=== PATIENT | female | born 1990 | race American Indian/Alaskan Native ===

== ENCOUNTER 2019-01-15 10:51 | Inpatient (IN) | payer MEDICAID ==
[2019-01-15 11:36] VITALS: BMI 29.1
[2019-01-15] MEDS ORDERED: Oxytocin 30 UNIT 30 UNITS/500 ML BAG IV ONE ×2 (12:13→18:40)
[2019-01-15] MEDS ORDERED: Lactated Ringer's 1,000 ML IV SCH (12:15)
[2019-01-15 12:19] VITALS: O2SAT 100
[2019-01-15 12:30] LABS: BASO # 0.1 K/uL (0.0-0.2); BASO % 1.6 % (0.0-2.0); EOS # 0.1 K/uL (0.0-0.7); EOS % 1.2 % (0.0-4.0); HEMOGLOBIN 12.3 g/dL (12.0-16.0); LYMPH # 1.1 K/uL (1.0-4.3); LYMPH % 20.4 % (20.0-40.0); MEAN CELL VOLUME 92.3 fl (81.0-99.0); MEAN CORPUSCULAR HEMOGLOBIN 30.1 pg (27.0-31.0); MEAN CORPUSCULAR HGB CONC 32.6 g/dL (33.0-37.0); MEAN PLATELET VOLUME 8.1 fl (7.2-11.7); MONO # 0.5 K/uL (0.0-0.8); MONO % 10.1 % (0.0-10.0); NEUT # 3.5 K/uL (1.8-7.0); NEUT % 66.7 % (50.0-75.0); NRBC % 0.5 % (0.0-0.0); RBC 4.08 Mil/uL (3.80-5.20); RED CELL DISTRIBUTION WIDTH 13.5 % (11.5-14.5); WHITE BLOOD COUNT 5.2 K/uL (4.8-10.8)
[2019-01-15] MEDS: Lactated Ringer's 1,000 ML IV SCH ×2 (15:40→16:40)
[2019-01-15] MEDS ORDERED: Fentanyl/Bupivacaine HCl 250 ML EPI ONE (16:05)
[2019-01-15] MEDS ORDERED: Oxycodone/Acetaminophen 5/325 mg Tab PO PRN ×2 (18:17→20:26)
[2019-01-15] MEDS ORDERED: Benzocaine/Menthol SPRAY TOP PRN ×2 (18:17→20:26)
--- NOTE | 2019-01-15 18:29 | OBDS ---
DELIVERY PERSONNEL Delivery Doctor: Dr. Avila Scaleman: Smita Maldonado RN Anesthesiologist: Dr. Mckeon Resident: Dr. Latif MATERNAL INFORMATION Delivery Anesthesia: Epidural Medications in Delivery: Pitocin 30 @ 999ml/hr Placenta Cultured: No Maternal Complications: None Provider Comments: Normal spontaneous vaginal delivery, of live female , position GHULAM over int act perineum. Nuchal cord wrapped around neck once- reduced. Spontaneous delivery of placenta with 3- vessel cord. No lacerations. Blood loss 200cc. I was present for the delivery agree with the note LABOR SUMMARY EDC: 01/12/2019 00:00 No. Babies in Womb: 1 Attempted: No Labor Anesthesia: Epidural LABOR INFORMATION Reason for Induction: Not Applicable Complete Dilatation: 01/15/2019 17:43 Oxytocin: Augmentation Group B Beta Strep: Negative Steroids Given: None Reason Steroids Not Administered: Not Applicable Other Reason Not Administered: + MEMBRANES Membranes Rupture Method: Spontaneous Rupture of Membranes: 01/14/2019 09:00 Length of Rupture (hrs): 32.92 Amniotic Fluid Color: Clear Amniotic Fluid Amount: Moderate Amniotic Fluid Odor: Normal STAGES OF LABOR Stage 2 hrs: 0 Stage 2 min: 12 Stage 3 hrs: 0 Stage 3 min: 7 VAGINAL DELIVERY Episiotomy: None Laceration Extension: N/A Laceration Type: None Laceration Repair: Not Applicable Initial Vag Sponge Count: 10 Final Vag Sponge Count: 10 Initial Vag Sharps Count: 0 Final Vag Sharps Count: 0 Sponge Count Correct: Yes Sharps Count Correct: N/A BABY A INFORMATION Delivery Date/Time: 01/15/2019 17:55 Method of Delivery: Vaginal Born in Route : No : N/A Forceps: N/A Vacuum Extraction: N/A Shoulder Dystocia : No SHOULDER DYSTOCIA BABY A Delivery Date/Time: 01/15/2019 17:55 PRESENTATION/POSITION BABY A Presentation: Cephalic Cephalic Presentation: Vertex Breech Presentation: N/A PLACENTA INFORMATION BABY A Placenta Delivery Time : 01/15/2019 18:02 Placenta Method of Delivery: Spontaneous Placenta Status: Delivered SCORES BABY A Heart Rate 1 min: >100 bpm Resp Effort 1 min: Good Cry Reflex Irritability 1 min: Cough or Sneeze or Pulls Away Muscle Tone 1 min: Active Motion Color 1 min: Body [place], Extremities Blue Resuscitation Effort 1 min: Tactile Stimulation SCORE 1 MIN: 9 Heart Rate 5 min: >100 bpm Resp Effort 5 min: Good Cry Reflex Irritability 5 min: Cough or Sneeze or Pulls Away Muscle Tone 5 min: Active Motion Color 5 min: Body [place], Extremities Blue Resuscitation Effort 5 min: Tactile Stimulation SCORE 5 MIN: 9 INFORMATION BABY A Gestational Age at Delivery: 40.0 Gestational Status: Term Infant Outcome : Liveborn Infant Condition : Stable Sex: Female IDENTIFICATION/MEDS BABY A ID Band Number: [id number] ID Band Location: Left Leg; Left Arm WEIGHT/LENGTH BABY A Infant Birthweight (gms): 3535 Infant Weight (lb): 7 Weight (oz): 13 CORD INFORMATION BABY A No. Cord Vessels: 3 Nuchal Cord : Around Neck x1, Loose Cord Blood Taken: N/A Infant Suction: None ASSESSMENT BABY A Infant Complications: Oligohydramnios Physical Findings at Delivery: Within Normal Limits Respirations: Appears Normal Installation Coordinator/ALS Called : No Care By: Vandana/Monica Transferred To: Remains with Mother
[2019-01-16 07:17] LABS: BASO % 0.4 % (0.0-2.0); EOS # 0.2 K/uL (0.0-0.7); EOS % 2.3 % (0.0-4.0); HEMOGLOBIN 10.8 g/dL (12.0-16.0); LYMPH # 1.6 K/uL (1.0-4.3); LYMPH % 19.6 % (20.0-40.0); MEAN CELL VOLUME 88.9 fl (81.0-99.0); MEAN CORPUSCULAR HEMOGLOBIN 29.8 pg (27.0-31.0); MEAN CORPUSCULAR HGB CONC 33.5 g/dL (33.0-37.0); MEAN PLATELET VOLUME 8.4 fl (7.2-11.7); MONO % 11.7 % (0.0-10.0); NEUT # 5.4 K/uL (1.8-7.0); NRBC % 0.1 % (0.0-0.0); RBC 3.61 Mil/uL (3.80-5.20); RED CELL DISTRIBUTION WIDTH 12.9 % (11.5-14.5); WHITE BLOOD COUNT 8.2 K/uL (4.8-10.8)
[2019-01-16] MEDS ORDERED: Lansinoh for Breast Feeding Mothers TP ONE (14:51)
--- NOTE | 2019-01-17 10:36 | OBPPN ---
Datetime: 01/17/2019 05:33 PP Pain Prov: Within normal limits PP Nausea Prov: Denies PP Flatus Prov: Yes PP BM Prov: Yes PP Breasts Prov: Not Done PP Heart Prov: Normal PP Lungs Prov: Normal PP Abdomen/Uterus Prov: Normal PP Lochia Prov: Normal PP Vulva/Perineum Prov: Normal PP CVA Tenderness Prov: Normal PP Extremities Prov: Normal PP C/S Incision Prov: Not Applicable PP Progress Prov: Normal PP Impression Prov: Normal progression PP Plan Prov: Continue present management PP Progress Note Prov: S: 28 yo s/p on 01/15/19, PPD2. Pt was seen and examined at bed side this AM. No overnight events. Pain is minimal. Ambulating and tolerating PO diet without difficu lty. Breast feeding and supplementing with formula. Lochia < menses. +Flatus/+ BM. Denies dizziness, orthostatic changes, changes in vision, palpitations, chest pain, fever, chills, diarrhea, nausea an d vomiting. O: VS: Stable overnight GEN: NAD Cardio: S1S2, no murmurs Lungs: clear breath sounds b/l, no wheezing Abdomen: BS+, appropriate tenderness to palpation. Uterus is firm and at the level of the umbilic us. EXT: No edema, calves non-tender NEURO/PSYCH: AAOx3, no grossly focal deficits, preserved affect and mood. H/H: aCBC: 13.3/37.7 pCBC: 10.8/32.1 Assessment/Plan: 28 yo s/p on 01/15/19, PPD2. Pt remains afebrile, tolerating pain. -Regular diet -Discharge today, 01/17 -Continue with current management -Encourage and ambulating -Colace 100mg BID -Ibuprofen 600mg q6 for pain Viky Iparraguirrkenneth, PGY [address] Morin: I have evaluated the patient independently and I agree with the above IP PP Procedures: None Vital Signs Provider PP: Reviewed; Within Normal Limits
--- NOTE | 2019-01-17 10:36 | OBDCSUM ---
Datetime: 01/17/2019 05:33 Discharged to, Provider: Home Follow up at, Provider: [facility] Disch Instr Activity: Normal activity Disch Instr Diet: Regular Discharge Instructions, Provider: Routine instructions given Discharge Diagnosis, Provider: Term Delivered Discharge Time: 01/17/2019 10:00 Follow up in weeks, Provider: 6 weeks Disch Referrals: None Contraception discussed, Prov: Yes Disch Activity Restrictions: No exercising; No lifting; No sexual activity; Nothing in vagina - Inte rcourse, tampons, douche Discharge Comment, Provider: 28 yo s/p of baby girl on 01/15/19 at 40+3 weeks EGA. [place]: Female, Wt. 3535 gm, 9/9 Post- D/C Summary: No complications during post- period. Lochia is less than menses. P t able to pass flatus, has passed a bowel movement. voiding well and able to ambulate without difficu lty. Tolerating regular diet w/o N/V. Fundus firm below umbilicus level. Pt is hemodynamically stable (EBL 200cc). H/H: aCBC: 13.3/37.7 pCBC: 10.8/32.1 Discharge Instructions given to patient: Encourage PNV 1 tab po q/day Ibuprofen 600 mg 1 tab po prn q4-6 if moderate pain #30. NO REFILL. Ambulatory with caution, nothing per vagina/sex for 4 weeks, no heavy lifting, avoid stairs, if ex cessive bleeding or fever without relief from Tylenol go to ED ED precautions: If excessive bleeding, pain that does not get relief, fever >100.4, palpitations, SOB, CP or other concerning symptom go to the ED. PT was urged if feeling sad, mood swing, depression, neglect of baby, suicidal thoughts, homicidal thoughts go to ER or call 911 for help Follow-up at [facility] [place] in 6 weeks for post- check. Viky Iparraguirrkenneth, PGY 1 Contraception after Delivery: Control Pill/Patch
[2019-01-17 19:36] VITALS: BP 112/64; PULSE 69; RESP 20; TEMP 98.4
== END 2019-01-17 13:40 | disposition home or self-care (01) | DRG 373 ==
LOC: H.EROB2 10:51 → H.L&D 12:20 → H.OB/GYN 21:27
PROVIDERS: ADMIT Obstetrics & Gynecology Gynecology; ATTEND Obstetrics & Gynecology Gynecology
PROC: 10E0XZZ Delivery of Products of Conception, External Approach (ICD-10-PCS; principal; 2019-01-15)
PROC: 4A1HXCZ Monitoring of Products of Conception, Cardiac Rate, External Approach (ICD-10-PCS; 2019-01-15)
DX: O41.03X0 Oligohydramnios, third trimester, not applicable or unspecified (principal); Z3A.40 40 weeks gestation of pregnancy; Z37.0 Single live birth; O69.81X0 Labor and delivery complicated by cord around neck, without compression, not applicable or unspecified